=== PATIENT | female | born 1935 | race Caucasian/White ===

== ENCOUNTER 2017-07-05 00:06 | Emergency (ER) | payer MEDICARE, BC ==
[2017-07-05] MEDS ORDERED: Acetaminophen/HYDROcodone 325-5 MG Tab PO ONE (00:07)
--- NOTE | 2017-07-05 00:30 | EDM.PDOC ---
ED HPI GENERAL MEDICAL PROBLEM - General Chief Complaint: Lower Extremity Injury/Pain Stated Complaint: "I THINK I HAVE A HEMATOMA" Time Seen by Provider: 07/05/17 00:07 Source of Information: Reports: Patient History Limitations: Reports: No Limitations - History of Present Illness INITIAL COMMENTS - FREE TEXT/NARRATIVE: Patient s an elderly female on Eliquis and aspirin for a-fib. She tripped going down the steps at 9 pm and received an abrasion and bruise on the left mid coronel area. It continued to become more swollen and painful as the night wore on so she came to ER. Onset: Today, Sudden Onset Date: 07/04/17 Onset Time: 21:00 Duration: Hour(s):, Getting Worse Location: Reports: Lower Extremity, Right Quality: Reports: Ache, Throbbing Severity: Moderate Improves with: Reports: Rest Worsens with: Reports: Movement Associated Symptoms: Reports: No Other Symptoms - Related Data Allergies Allergy/AdvReac Type Severity Reaction Status Date / Time No Known Allergies Allergy Verified 07/05/17 00:10 Home Meds: Home Meds Apixaban [Eliquis] 5 mg PO BID 07/05/17 [History] Aspirin [Halfprin] 81 mg PO DAILY 07/05/17 [History] Cholecalciferol (Vitamin D3) [Vitamin D3] 5,000 unit PO DAILY 07/05/17 [History] Cyanocobalamin (Vitamin B-12) [Vitamin B-12] 5,000 mcg PO DAILY 07/05/17 [ History] Flecainide Acetate 50 mg PO DAILY 07/05/17 [History] Metoprolol Tartrate 25 mg PO BID 07/05/17 [History] Past Medical History Cardiovascular History: Reports: Afib Review of Systems - Review of Systems Review Of Systems: See Below Constitutional: Reports: No Symptoms Eyes: Reports: No Symptoms Ears: Reports: No Symptoms Nose: Reports: No Symptoms Mouth/Throat: Reports: No Symptoms Respiratory: Reports: No Symptoms Cardiovascular: Reports: No Symptoms GI/Abdominal: Reports: No Symptoms Genitourinary: Reports: No Symptoms Musculoskeletal: Reports: Leg Pain, Other (large hematoma on left calf that is painful, swollen and bruised.) Skin: Reports: Bruising (right lateral calf), Other (abrasion on right mid coronel with slight blood ooze) Neurological: Reports: No Symptoms Psychiatric: Reports: No Symptoms ED EXAM, GENERAL - Physical Exam Exam: See Below Exam Limited By: No Limitations General Appearance: Alert, WD/WN, No Apparent Distress Eye Exam: Bilateral Eye: PERRL Ears: Normal External Exam Head: Atraumatic, Normocephalic Neck: Normal Inspection, Supple, Non-Tender, Full Range of Motion Respiratory/Chest: No Respiratory Distress, Lungs Clear, Normal Breath Sounds, No Accessory Muscle Use, Chest Non-Tender Cardiovascular: Normal Peripheral Pulses (pedal pulses 2 + and regular bilat lower extremities), Regular Rate, Rhythm, No Edema, No Gallop, No JVD, No Murmur , No Rub Peripheral Pulses: 2+: Radial (L), Radial (R), Dorsalis Pedis (L), Dorsalis Pedis (R) GI/Abdominal: Soft, Non-Tender (Female) Exam: Deferred Rectal (Female) Exam: Deferred Back Exam: Normal Inspection Extremities: Normal Inspection, Normal Range of Motion, Non-Tender, No Pedal Edema, Normal Capillary Refill, Other (all extremities within normal limits except for large hematoma lateral right calf extending from just below the knee to several inches above the ankle with small 3 cm abrasion right mid coronel. No edema in right foot and CMS intact to the foot. 2 + pulse right foot and minimal pain at rest.) Neurological: Alert, Oriented, CN II-XII Intact, Normal Cognition, Normal Gait, Normal Reflexes, No Motor/Sensory Deficits Psychiatric: Normal Affect, Normal Mood Skin Exam: Warm, Dry, Intact, Normal Color, Other (see note above regarding right calf) Lymphatic: No Adenopathy Course - Radiology Interpretation Free Text/Narrative:: X ray right calf showed no fracture of tibia or fibula. Over read pending - Re-Assessments/Exams Free Text/Narrative Re-Assessment/Exam: 07/05/17 00:45 Patient evaluated. X-ray done. Wound cleansed and dressed and Eric wrap applied. Discussed with patient danger sign of what to watch for and to follow up with Dr Starr on Friday. Patient voiced understanding. Departure - Departure Time of Disposition: 00:46 Disposition: Home, Self-Care 01 Clinical Impression: Hematoma of right lower extremity Qualifiers: Encounter type: initial encounter Qualified Code(s): S80.11XA - Contusion of right lower leg, initial encounter - Discharge Information Instructions: Hematoma, [id number], Acute Compartment Syndrome Additional Instructions: Use Hydrocodone/acetominophin 5/425 one tablet every 4-6 hours for pain. Keep leg wrapped and elevated when sitting down. Watch for infection in the abrasion. Follow up with Dr Starr on Friday. Watch for the following signs in the leg which are danger signs: The foot is pale, cold or pulseless, has numbness, tingling or loss of feeling in the leg, pain that is excruciating and difficult to control. The could indicate compartment syndrome and requires re-evaluation.
[2017-07-05] MEDS ORDERED: Take Home: Acetaminophen/HYDROcodone 325-5 MG, 2 Tab Pack PO ONE (00:55)
== END 2017-07-05 01:10 | disposition home or self-care (01) ==
LOC: CC.ED 00:06
DX: S80.11XA Contusion of right lower leg, initial encounter (principal); S90.511A Abrasion, right ankle, initial encounter; S80.811A Abrasion, right lower leg, initial encounter; I48.91 Unspecified atrial fibrillation; Z79.82 Long term (current) use of aspirin; W18.40XA Slipping, tripping and stumbling without falling, unspecified, initial encounter
CPT/HCPCS: 73590; 99283; A9270